=== PATIENT | male | born 1990 | race Caucasian/White ===

== ENCOUNTER 2020-05-31 10:00 | Emergency (ER) | payer OTHER ==
[~2020-05-31] VITALS: Ht 185.4 cm; Wt 83.9 kg
[2020-05-31 10:00] VITALS: BP 150/76; TEMP 98
== END 2020-05-31 11:30 | disposition home or self-care (01) ==
LOC: ED 10:00
PROC: 0HQDXZZ Repair Right Lower Arm Skin, External Approach (ICD-10-PCS; principal; 2020-05-31)
DX: S61.511A Laceration without foreign body of right wrist, initial encounter (principal); W26.8XXA Contact with other sharp object(s), not elsewhere classified, initial encounter; Y92.098 Other place in other non-institutional residence as the place of occurrence of the external cause
CPT/HCPCS: 90471; 90715; 96372; 99283; J0690; J2270; J2405; J7040

== ENCOUNTER 2020-07-15 14:01 | Emergency (ER) | payer OTHER ==
[~2020-07-15] VITALS: Ht 185.4 cm; Wt 83.9 kg
[2020-07-15 14:01] VITALS: BP 141/91; TEMP 98
[2020-07-15 14:42] LABS: POTASSIUM 3.5 mmol/L (3.6-5.2)
[2020-07-15 14:48] LABS: PLATELET COUNT 288 K/uL (142-355)
== END 2020-07-15 15:19 ==
LOC: ED 14:01
PROVIDERS: Family Medicine
DX: T40.7X2A Poisoning by cannabis (derivatives), intentional self-harm, initial encounter (principal); T43.622A Poisoning by amphetamines, intentional self-harm, initial encounter; R11.2 Nausea with vomiting, unspecified; Y92.59 Other trade areas as the place of occurrence of the external cause
CPT/HCPCS: 36415; 80053; 85027; 99283; J2060